=== PATIENT | female | born 1995 | race Caucasian/White ===

== ENCOUNTER 2017-03-05 19:26 | Emergency (ER) | payer OTHER ==
[2017-03-05 19:37] VITALS: TEMP 98.2; BMI 22.4
--- NOTE | 2017-03-05 20:14 | PDOC ---
History of Present Illness - General History Source: Patient Exam Limitations: No Limitations - History of Present Illness Initial Comments: 03/05/17 21:31 Patient is a 21 year old female, 7 weeks , with no significant past medical history who presents to the ED with complaints vomiting that began 2 week ago. Patient reporting experiencing sudden onset of vomiting 2 weeks ago that has not subsided or relieved. She reports feeling dizzy and nauseous secondary to vomiting. She reports experiencing vaginal bleeding on wednesday when cleaning herself, stating that she has not experienced that before. Patient reports experiencing intermittent abdominal pain secondary to vomiting. Denies fever, chills. Denies chest pain, SOB . Denies any outside travel. Denies any contact with sick individuals. Denies dysuria, constipation. Denies any other symptoms. Allergies: None Social history: No smoking. No alcohol. No illicit drugs. Surgical history: None PMD:None <Fili Samayoa - Last Filed: 03/05/17 21:31> <Natalia Trinidad - Last Filed: 03/06/17 01:33> - General Chief Complaint: Nausea/Vomiting Stated Complaint: ABDOMINAL PAIN/6 WKS Time Seen by Provider: 03/05/17 20:13 Past History <Fili Samayoa - Last Filed: 03/05/17 21:31> - Past Medical History Other medical history: denies - Suicide/Smoking/Psychosocial Hx Smoking History: Never smoked <Natalia Trinidad - Last Filed: 03/06/17 01:33> - Past Medical History Allergies/Adverse Reactions: Allergies Allergy/AdvReac Type Severity Reaction Status Date / Time No Known Allergies Allergy Verified 03/05/17 19:37 Home Medications: Ambulatory Orders Doxylamine/Pyridoxine HCl [Anderson Holland 10-10 mg Tablet] 1 each PO HS #10 tablet. 03/06/17 Review of Systems - Review of Systems Able to Perform ROS?: Yes Comments:: 03/05/17 21:31 GENERAL/CONSTITUTIONAL: No fever or chills. No weakness. HEAD, EYES, EARS, NOSE AND THROAT: No change in vision. No ear pain or discharge. No sore throat. GASTROINTESTINAL: +Nausea. +Vomiting. No diarrhea or constipation. GENITOURINARY: No dysuria, frequency, or change in urination. CARDIOVASCULAR: No chest pain or shortness of breath. RESPIRATORY: No cough, wheezing, or hemoptysis. MUSCULOSKELETAL: +abdominal pain. No joint or muscle swelling. No neck or back pain. SKIN: No rash NEUROLOGIC: No headache, vertigo, loss of consciousness, or change in strength/ sensation. ENDOCRINE: No increased thirst. No abnormal weight change. HEMATOLOGIC/LYMPHATIC: No anemia, easy bleeding, or history of blood clots. ALLERGIC/IMMUNOLOGIC: No hives or skin allergy. All Other Systems: Reviewed and Negative <Fili Samayoa - Last Filed: 03/05/17 21:31> *Physical Exam - Vital Signs Last Vital Signs Temp Pulse Resp BP Pulse Ox 98.2 F 75 18 103/59 99 03/05/17 19:33 03/05/17 19:33 03/05/17 19:33 03/05/17 19:33 03/05/17 19:33 - Physical Exam Comments: 03/05/17 21:32 GENERAL: Awake, alert, and fully oriented, in no acute distress HEAD: No signs of trauma EYES: PERRLA, EOMI, sclera anicteric, conjunctiva clear ENT: Auricles normal inspection, hearing grossly normal, nares patent, oropharynx clear without exudates. Moist mucosa NECK: Normal ROM, supple, no lymphadenopathy, JVD, or masses LUNGS: Breath sounds equal, clear to auscultation bilaterally. No wheezes, and no crackles HEART: +Tachycardic. Regular rhythm, normal S1 and S2, no murmurs, rubs or gallops ABDOMEN: +Mild superpubic tenderness. Soft, normoactive bowel sounds. No guarding, no rebound. No masses EXTREMITIES: Normal range of motion, no edema. No clubbing or cyanosis. No cords, erythema, or tenderness NEUROLOGICAL: Cranial nerves II through XII grossly intact. Normal speech. SKIN: Warm, Dry, normal turgor, no rashes or lesions noted. <Fili Samayoa - Last Filed: 03/05/17 21:31> - Vital Signs Last Vital Signs Temp Pulse Resp BP Pulse Ox 98.2 F 75 18 103/59 99 03/05/17 19:33 03/05/17 19:33 03/05/17 19:33 03/05/17 19:33 03/05/17 19:33 <Natalia Trinidad - Last Filed: 03/06/17 01:33> ED Treatment Course - LABORATORY CBC & Chemistry Diagram: 03/05/17 20:30 03/05/17 20:30 - ADDITIONAL ORDERS Additional order review: Laboratory Results 03/05/17 20:30 Sodium 137 Potassium 4.4 Chloride 103 Carbon Dioxide 26 Anion Gap 8 BUN 9 Creatinine 0.6 Creat Clearance w eGFR > 60 Random Glucose 80 Calcium 9.7 Total Bilirubin 0.6 AST 31 ALT 73 Alkaline Phosphatase 77 Total Protein 8.3 H Albumin 4.6 03/05/17 20:30 RBC 4.81 MCV 88.7 MCHC 34.5 RDW 12.6 MPV 8.9 Neutrophils % 81.9 Lymphocytes % 14.0 Monocytes % 3.7 L Eosinophils % 0.0 Basophils % 0.4 - Medications Given in the ED: ED Medications Discontinued Medications Generic Name Dose Route Start Last Admin Trade Name Pabloq PRN Reason Stop Dose Admin Famotidine/Sodium Chloride 50 mls @ 100 mls/hr 03/05/17 20:24 03/05/17 20:56 Pepcid 20 Mg Premixed Ivpb - IVPB 03/05/17 20:53 100 mls/hr ONCE ONE Administration Ondansetron HCl 4 mg 03/05/17 20:24 03/05/17 20:56 Zofran Injection IVPUSH 03/05/17 20:25 4 mg ONCE ONE Administration Pyridoxine HCl 50 mg 03/05/17 20:35 03/05/17 21:02 Vitamin B6 - PO 03/05/17 20:36 50 mg ONCE ONE Administration Sodium Chloride 1,000 ml 03/05/17 20:22 03/05/17 20:56 Normal Saline - IV 03/05/17 20:23 1,000 ml ONCE ONE Administration <Fili Samayoa - Last Filed: 03/05/17 21:31> - LABORATORY CBC & Chemistry Diagram: 03/05/17 20:30 03/05/17 20:30 <Natalia Trinidad - Last Filed: 03/06/17 01:33> Medical Decision Making - Medical Decision Making 03/05/17 23:01 a/p: 21yo female with n/v during 1st trimester of -now with pelvic cramping, had spotting on wednesday -labs -ultrasound -nausea control -ivf hydration -reassess 03/06/17 01:10 pt pending ultrasound results 03/06/17 01:17 pt feeling better. tolerated po intake. no n/v in the deparmtnet. discussed lab and imaging results. has appt with ob.rubbish collector at [facility] on wednesday. recommended pt to go to appt. discussed all reasons to return to the ED and need for follow up. answered all questions. <Natalia Trinidad - Last Filed: 03/06/17 01:33> *DC/Admit/Observation/Transfer - Attestations Scribe Attestion: 03/05/17 21:32 Documentation prepared by Fili Samayoa, acting as medical director for Natalia Trinidad DO, MD/. <Fili Samayoa - Last Filed: 03/05/17 21:31> - Discharge Dispostion Admit: No - Attestations Physician Attestion: 03/06/17 01:32 I, Dr. Natalia Trinidad DO, attest that this document has been prepared under my direction and personally reviewed by me in its entirety. I further attest, that it accurately reflects all work, treatment, procedures and medical decision -making performed by me. <Natalia Trinidad - Last Filed: 03/06/17 01:33> Diagnosis at time of Disposition: Nausea and vomiting during - Discharge Dispostion Disposition: HOME Condition at time of disposition: Stable - Prescriptions Prescriptions: Doxylamine/Pyridoxine HCl [Anderson Holland 10-10 mg Tablet] 1 each PO HS #10 tablet.dr - Referrals Referrals: Genevieve Zuluaga MD [Staff Physician] - - Patient Instructions Printed Discharge Instructions: DI for Vomiting -- Adult, DI for Nausea -- Adult Additional Instructions: Please take all meds as instructed. Please keep your appointment for Wednesday. Please return to the ED with any further concerns.
[2017-03-05] MEDS ORDERED: SODIUM CHLORIDE 0.9% 1000 ML INFUS.BAG IV ONE (20:22)
[2017-03-05] MEDS ORDERED: ONDANSETRON 4 MG/2 ML VIAL IVPUSH ONE (20:24)
[2017-03-05] MEDS ORDERED: FAMOTIDINE 20 MG/50 ML IVPB 50 ML IVPB ONE ×2 (20:24→21:08)
[2017-03-05] MEDS ORDERED: PYRIDOXINE HCL (B-6) 50 MG TABLET (FP) PO ONE (20:35)
[2017-03-05 20:54] LABS: BASOPHIL 0.4 % (0-2.0); MCH 30.6 pg (25.7-33.7); MCHC 34.5 g/dl (32.0-36.0); MEAN CELL VOLUME 88.7 fl (80-96); MEAN PLT VOLUME 8.9 fl (7.5-11.1); NEUTROPHILS 81.9 % (42.8-82.8); PLATELET COUNT 234 K/MM3 (134-434); RDW 12.6 % (11.6-15.6); WHITE BLOOD COUNT 14.2 K/mm3 (4.0-10.0)
[2017-03-05] MEDS ORDERED: ONDANSETRON 4 MG/2 ML VIAL ONE (21:08)
[2017-03-05 21:27] LABS: ALBUMIN 4.6 g/dl (3.4-5.0); ANION GAP 8 (8-16); BILIRUBIN,TOTAL 0.6 mg/dL (0.2-1.0); CALCIUM 9.7 mg/dL (8.5-10.1); CO2 26 mmol/L (21-32); CREATININE 0.6 mg/dL (0.55-1.02); GLUCOSE,RANDOM 80 mg/dL (74-106); SGOT/AST 31 U/L (15-37); SGPT/ALT 73 U/L (12-78); TOT PROT 8.3 g/dl (6.4-8.2)
[2017-03-05 21:28] LABS: ALK PHOS 77 U/L (45-117)
[2017-03-05 21:58] LABS: URINE APPEARANCE CLEAR; URINE BILIRUBIN 1+ (NEGATIVE); URINE BLOOD NEGATIVE (NEGATIVE); URINE COLOR LT. YELLOW; URINE GLUCOSE (UA) NEGATIVE (NEGATIVE); URINE KETONE 3+ (NEGATIVE); URINE LEUK ESTERASE NEGATIVE (NEGATIVE); URINE NITRITE NEGATIVE (NEGATIVE); URINE UROBILINOGEN 0.2 mg/dL (0.2-1.0)
[2017-03-05 22:04] LABS: URINE PROTEIN 1+ (NEGATIVE)
[2017-03-05 22:27] LABS: URINE MUCUS MODERATE; URINE RBC 1 /hpf (0-3); URINE WBC 1 /hpf (3-5)
[2017-03-05 22:47] VITALS: BP 114/68; PULSE 71
== END 2017-03-06 02:19 | disposition home or self-care (01) ==
LOC: JER 19:26
PROC: 3E033GC Introduction of Other Therapeutic Substance into Peripheral Vein, Percutaneous Approach (ICD-10-PCS; principal; 2017-03-05)
DX: O21.0 Mild hyperemesis gravidarum (principal); Z3A.01 Less than 8 weeks gestation of pregnancy
CPT/HCPCS: 36415; 76817-TC; 80053; 81003; 81015; 84702; 84703; 85025; 86850; 86900; 86901; 96365; 96375; 99281-25

== ENCOUNTER 2017-10-24 08:55 | Inpatient (IN) | payer OTHER ==
[2017-10-24] MEDS ORDERED: DEXTROSE 5%-LACTATED RINGERS 500 ML IV ONE ×2 (10:15→11:15)
--- NOTE | 2017-10-24 12:56 | HP ---
Past Medical History - Admission Chief Complaint: Postdates History of Present Illness: 22 yo , @ 40 weeks gestation, EDC 10/21/17, sent from clinic for BPP. Decision made for induction of labor. History Source: Patient Limitations to Obtaining History: No Limitations - Past Medical History ...: 1 ...Para: 0 ...LMP: 01/14/17 ... Weeks Gestation by Dates: 40.3 ...EDC by Dates: 10/21/17 ...EDC by Sono: 10/21/17 - Past Surgical History Past Surgical History: Yes: None Hx Myomectomy: No Hx Transabdominal Cerclage: No - Smoking History Smoking history: Never smoked Have you smoked in the past 12 months: No - Alcohol/Substance Use Hx Alcohol Use: No History of Substance Use: reports: None - Social History Usual Living Arrangement: Yes: With Parent History of Recent Travel: No Home Medications - Allergies Allergies/Adverse Reactions: Allergies Allergy/AdvReac Type Severity Reaction Status Date / Time No Known Allergies Allergy Verified 04/24/17 20:08 - Home Medications Home Medications: Ambulatory Orders Iron 100 Plus Tablet 1 tab PO DAILY 08/19/17 Formula Tablet 1 tab PO DAILY 08/19/17 Family Disease History - Family Disease History Family History: Unremarkable Review of Systems - Review of Systems Constitutional: reports: No Symptoms Eyes: reports: No Symptoms HENT: reports: No Symptoms Neck: reports: No Symptoms Cardiovascular: reports: No Symptoms Respiratory: reports: No Symptoms Gastrointestinal: reports: No Symptoms Genitourinary: reports: Pain Breasts: reports: No Symptoms Reported Musculoskeletal: reports: No Symptoms Integumentary: reports: No Symptoms Neurological: reports: No Symptoms Endocrine: reports: No Symptoms Hematology/Lymphatic: reports: No Symptoms Psychiatric: reports: No Symptoms Pain Intensity: 3 Physical Exam - Maternity Vital Signs: Vital Signs Temperature 98.4 F 10/24/17 09:39 Pulse Rate 120 H 10/24/17 09:39 Respiratory Rate 20 10/24/17 09:39 Blood Pressure 122/76 10/24/17 09:39 O2 Sat by Pulse Oximetry (%) Constitutional: Yes: Well Nourished Eyes: Yes: Conjunctiva Clear HENT: Yes: Atraumatic Neck: Yes: Supple Cardiovascular: Yes: Regular Rate and Rhythm Lungs: Clear to auscultation - Abdominal Exam/OB Number of Fetuses: Single Presentation: Vertex - Vaginal Exam/OB Dilatation (cm): 1 Effacement (%): 60 Amniotic Membrane Status: Intact Presentation: Vertex/Position Station: -3 - Physical Exam Integumentary: Yes: WNL ...Motor Strength: WNL Psychiatric: Yes: Alert, Oriented Problem List - Problems (1) Post-dates Code(s): O48.0 - POST-TERM Assessment/Plan Postdates Admit to L&D Induction of labor
[2017-10-24] MEDS ORDERED: AMPICILLIN SODIUM 2 GM VIAL ONE (12:58)
[2017-10-24] MEDS ORDERED: TUBERCULIN PPD 5 TU/0.1ML SYRINGE (IN PATIENT USE ONLY) ID ONE (13:30)
[2017-10-24] MEDS: DEXTROSE 5%-LACTATED RINGERS 1,000 ML IV SCH (13:30)
[2017-10-24] MEDS ORDERED: AMPICILLIN - 2 GM in SODIUM CHLORIDE 100 ML IVPB ONE (13:30)
[2017-10-24 13:51] VITALS: BMI 30.9
[2017-10-24 13:58] LABS: BASO % 0.7 % (0-2.0); EOS % 0.9 % (0-4.5); HEMATOCRIT 34.9 % (32.4-45.2); HEMOGLOBIN 12.6 GM/dL (10.7-15.3); LYMPH % 19.2 % (8-40); MCH 33.8 pg (25.7-33.7); MCHC 36.2 g/dl (32.0-36.0); MEAN CELL VOLUME 93.4 fl (80-96); MEAN PLT VOLUME 8.7 fl (7.5-11.1); MONO % 5.6 % (3.8-10.2); NEUT % 73.6 % (42.8-82.8); PLATELET COUNT 217 K/MM3 (134-434); RBC 3.74 M/mm3 (3.60-5.2); RDW 14.3 % (11.6-15.6); WHITE BLOOD COUNT 8.8 K/mm3 (4.0-10.0)
[2017-10-24] MEDS ORDERED: DINOPROSTONE 10 MG VAGINAL SUPPOSITORY VG ONE (14:00)
[2017-10-24 14:05] LABS: INR 0.93 (0.82-1.09); PROTHROMBIN TIME (PATIENT) 10.5 SEC (9.7-13.0)
[2017-10-24 14:11] LABS: ANION GAP 10 (8-16); BLOOD UREA NITROGEN 8 mg/dL (7-18); CALCIUM 8.2 mg/dL (8.5-10.1); CHLORIDE 108 mmol/L (98-107); CO2 21 mmol/L (21-32); CREATININE 0.5 mg/dL (0.55-1.02); GLUCOSE,RANDOM 124 mg/dL (74-106); POTASSIUM 3.6 mmol/L (3.5-5.1); SODIUM 139 mmol/L (136-145)
[2017-10-24] MEDS ORDERED: AMPICILLIN SODIUM 1 GM VIAL ONE ×2 (16:47→21:31)
[2017-10-24] MEDS: AMPICILLIN - 1 GM in SODIUM CHLORIDE 100 ML IVPB SCH ×2 (17:00→21:00)
--- NOTE | 2017-10-24 20:35 | PN ---
Progress Note (short form) - Note Progress Note: Patient seen and evaluated, she c/o mild discomfort. Cervidil removed, and membrane ruptured. scalp electrode placed. VE : 3-4 / 80 / -2 S/P cervidil induction Pitocin augmentation Anticipate Problem List - Problems (1) Post-dates Code(s): O48.0 - POST-TERM
[2017-10-24] MEDS ORDERED: CITRIC ACID/SODIUM CITRATE 30 ML UNIT-DOSE CUP PO ONE (21:54)
--- NOTE | 2017-10-24 21:54 | PN ---
Progress Note (short form) - Note Progress Note: Patient seen and evaluated, she c/o moderate discomfort. Cervidil removed, and membrane ruptured. FHR : Non-Reassuring VE : 4 80 / -2 S/P cervidil induction Non-Reassuring FHR Pre op for Consent signed Anesthesia to see patient Problem List - Problems (1) Post-dates Code(s): O48.0 - POST-TERM
[2017-10-24] MEDS ORDERED: ONDANSETRON 4 MG/2 ML VIAL IVPUSH PRN (22:01)
[2017-10-24] MEDS ORDERED: morphine SULFATE/Preservative Free 0.5 MG/ML (1cc Syringe) ONE (22:11)
[2017-10-24] MEDS ORDERED: BUPIVACAINE 0.75% IN DEXTROSE/PF 2ML AMPULE NR ONE (22:13)
[2017-10-24] MEDS ORDERED: KETOROLAC TROMETHAMINE 30 MG/1 ML VIAL ONE (22:18)
[2017-10-24] MEDS ORDERED: DEXAMETHASONE SOD PHOSPHATE 4 MG/1 ML VIAL ONE (22:18)
[2017-10-24] MEDS ORDERED: OXYTOCIN 20 UNITS in 0.9% NS 20 UNIT/1,000 ML INFUS.BAG IV ONE (22:32)
[2017-10-24] MEDS ORDERED: ceFAZolin SODIUM 1 GM VIAL ONE (22:36)
[2017-10-24] MEDS ORDERED: SODIUM CHLORIDE 0.9% P/F 10 ML VIAL IJ ONE (22:36)
[2017-10-24] MEDS: OXYTOCIN 20 UNITS in 0.9% NS 20 UNIT/1,000 ML INFUS.BAG IV SCH (22:48)
--- NOTE | 2017-10-24 22:58 | PN ---
Progress Note (short form) - Note Progress Note: Called to attened C/s for this this FT " large" female - delivered to 24yrs old mother with PNL- neg, GBS- Pos, ROM > 3hrs adequate IAP C/s done for NRFHT delivered - clear fluid, cried soon after suctioned/ dried cord 3V 9/9 Infant clinically stable- large in size Normocephalic, AFOF [place] well perfused Chest B/L symm, No heart murmur, No organomegaly , - nl female FROM, NL hip exam. Good tone and activity Term LGA Female C/S for NRFHT GBS- pos mom - adequate IAP RNBC F/U BGM early Feeds
[2017-10-24] MEDS ORDERED: IBUPROFEN 800 MG/8 ML IJ IVPB PRN (23:18)
[2017-10-24] MEDS ORDERED: METHYLERGONOVINE MALEATE 0.2 MG/1 ML AMP IM PRN (23:18)
--- NOTE | 2017-10-24 23:22 | OP ---
Operative Note - Note: Operative Date: 10/24/17 Pre-Operative Diagnosis: Non-Reassuring Heart Rate Operation: Primary Low Transverse Findings: Large baby for gestational age Post-Operative Diagnosis: Same as Pre-op Surgeon: Araceli Reyes Electronics Manufacturer: Bartolo Patel Anesthesia: Spinal Specimens Removed: Placenta Estimated Blood Loss (mls): 600
[2017-10-25 00:21] LABS: ARTERIAL BLOOD GAS PCO2 48.4 mmHg (35-45); ARTERIAL BLOOD GAS pH 7.32 (7.35-7.45)
[2017-10-25 00:23] LABS: VENOUS PC02 53.4 mmHg (38-52); VENOUS PH 7.29 (7.32-7.42)
[2017-10-25 00:25] LABS: VENOUS PO2 17.9 mmHg (28-48)
[2017-10-25 00:26] LABS: ARTERIAL BLD GAS O2 SATURATION 36.2 % (90-98.9); ARTERIAL BLOOD GAS PO2 20.1 mmHg (80-100)
[2017-10-25] MEDS ORDERED: OXYTOCIN 20 UNITS in 0.9% NS 20 UNIT/1,000 ML INFUS.BAG IV ONE (00:59)
[2017-10-25] MEDS: OXYTOCIN 20 UNITS in 0.9% NS 20 UNIT/1,000 ML INFUS.BAG IV SCH ×2 (07:00→23:50)
[2017-10-25 07:47] LABS: BASO % 0.4 % (0-2.0); HEMATOCRIT 31.8 % (32.4-45.2); HEMOGLOBIN 11.5 GM/dL (10.7-15.3); MCH 34.1 pg (25.7-33.7); MEAN CELL VOLUME 94.5 fl (80-96); MEAN PLT VOLUME 8.7 fl (7.5-11.1); MONO % 6.8 % (3.8-10.2); NEUT % 79.8 % (42.8-82.8); PLATELET COUNT 213 K/MM3 (134-434); RBC 3.36 M/mm3 (3.60-5.2); RDW 13.8 % (11.6-15.6); WHITE BLOOD COUNT 16.8 K/mm3 (4.0-10.0)
[2017-10-25] MEDS: FERROUS SO4 325 MG TABLET (FP) PO SCH ×2 (08:59→18:03)
[2017-10-25] MEDS: PRENATAL VITAMINS W/ FOLIC ACID TABLET (FP) PO SCH (10:00)
--- NOTE | 2017-10-25 14:20 | PN ---
Progress Note (short form) - Note Progress Note: Anesthesia POD@1 S/P under Spinal anesthesia VSS,No N/Vomitng,food is advanced. Legs have full strength. A/P No complications to anesthesia seen. Sol Helton MD.
[2017-10-25] MEDS: DEXTROSE 5%-LACTATED RINGERS 1,000 ML IV SCH (15:00)
[2017-10-25] MEDS: oxyCODONE HCL 5 MG TABLET PO PRN (22:04)
[2017-10-25] MEDS: SIMETHICONE 80 MG TAB.CHEW (FP) PO PRN (22:04)
[2017-10-25] MEDS: IBUPROFEN 600 MG TABLET (FP) PO PRN (22:06)
[2017-10-25] MEDS ORDERED: BISACODYL 10 MG SUPP.RECT RC PRN (23:18)
[2017-10-26] MEDS: FERROUS SO4 325 MG TABLET (FP) PO SCH ×2 (08:43→16:53)
[2017-10-26] MEDS: PRENATAL VITAMINS W/ FOLIC ACID TABLET (FP) PO SCH (10:08)
[2017-10-26] MEDS: oxyCODONE HCL 5 MG TABLET PO PRN ×2 (10:13→18:52)
[2017-10-26] MEDS: SIMETHICONE 80 MG TAB.CHEW (FP) PO PRN ×2 (10:14→18:53)
[2017-10-26] MEDS: IBUPROFEN 600 MG TABLET (FP) PO PRN ×2 (10:14→18:52)
--- NOTE | 2017-10-26 11:08 | PN ---
Progress Note (SOAP) - Subjective Chief Complaint: Pt and had no complaints pt was seen on 10/25 - Current Medications Current Medications: Active Medications Bisacodyl (Dulcolax Suppository -) 10 mg RC DAILY PRN PRN Reason: CONSTIPATION Diphenhydramine HCl (Benadryl Injection -) 25 mg IVPUSH Q4H PRN PRN Reason: Pruritis Ferrous Sulfate (Feosol -) 325 mg PO BIDWM [facility] Last Admin: 10/26/17 08:43 Dose: 325 mg Ibuprofen (Motrin -) 600 mg PO Q4H PRN PRN Reason: PAIN LEVEL 1 - 3 Last Admin: 10/26/17 10:14 Dose: 600 mg Ibuprofen (Caldolor Injection -) 800 mg IVPB Q8H PRN PRN Reason: PAIN LEVEL 4 - 6 Methylergonovine Maleate (Methergine Injection -) 0.2 mg IM Q4H PRN PRN Reason: Excessive Bleeding (L&D) Ondansetron HCl (Zofran Injection) 4 mg IVPUSH Q4H PRN PRN Reason: NAUSEA Oxycodone HCl (Roxicodone -) 5 mg PO Q4H PRN PRN Reason: PAIN LEVEL 7 - 10 Last Admin: 10/26/17 10:13 Dose: 5 mg Multivit/Folic Acid/Iron ( Vitamins (Sjr) -) 1 tab PO DAILY [facility] Last Admin: 10/26/17 10:08 Dose: 1 tab Simethicone (Mylicon -) 80 mg PO Q4H PRN PRN Reason: GAS Last Admin: 10/26/17 10:14 Dose: 80 mg - Objective Vital Signs: Vital Signs Temperature 98.4 F 10/25/17 21:01 Pulse Rate 109 H 10/25/17 21:01 Respiratory Rate 20 10/25/17 21:01 Blood Pressure 101/55 10/25/17 21:01 O2 Sat by Pulse Oximetry (%) 98 10/25/17 02:00 Constitutional: Yes: Well Nourished, No Distress Gastrointestinal: Yes: WNL, Soft ....Post : Yes: Uterus firm, Uterus non-tender Breast(s): Yes: WNL Musculoskeletal: Yes: WNL Extremities: Yes: WNL Edema: No Wound/Incision: Yes: Dressing Dry and Intact Psychiatric: Yes: WNL, Alert, Oriented Labs Lab Results: CBC, BMP 10/25/17 07:30 10/24/17 13:37 Assessment/Plan SP CS POD 1 Plan Continue present management
--- NOTE | 2017-10-26 14:09 | PN ---
Post Progress Note - Subjective Subjective: 22 yo Para 1 status post primary , seen and evaluated. She's lying in bed c/o mild incision pain. Post Day: 2 Type of Delivery: Primary C/S Vital Signs: Vital Signs Temperature 98.7 F 10/26/17 07:10 Pulse Rate 82 10/26/17 07:10 Respiratory Rate 18 10/26/17 07:10 Blood Pressure 115/69 10/26/17 07:10 O2 Sat by Pulse Oximetry (%) 98 10/25/17 02:00 Uterus: Yes: Fundus Firm Incision: Yes: [place] intact Abdomen/GI: Yes: Abdomen soft, Tolerating PO Lochia: Yes: Rubra Lochia, amount: Small Extremities: Yes: Calves non-tender Perineum: Yes: Intact Activity: Ambulating - Labs Labs: CBC WBC 16.8 K/mm3 (4.0-10.0) H D 10/25/17 07:30 RBC 3.36 M/mm3 (3.60-5.2) L 10/25/17 07:30 Hgb 11.5 GM/dL (10.7-15.3) 10/25/17 07:30 Hct 31.8 % (32.4-45.2) L 10/25/17 07:30 MCV 94.5 fl (80-96) 10/25/17 07:30 MCH 34.1 pg (25.7-33.7) H 10/25/17 07:30 MCHC 36.0 g/dl (32.0-36.0) 10/25/17 07:30 RDW 13.8 % (11.6-15.6) 10/25/17 07:30 Plt Count 213 K/MM3 (134-434) 10/25/17 07:30 MPV 8.7 fl (7.5-11.1) 10/25/17 07:30 Neutrophils % 79.8 % (42.8-82.8) 10/25/17 07:30 Lymphocytes % 13.0 % (8-40) D 10/25/17 07:30 Monocytes % 6.8 % (3.8-10.2) 10/25/17 07:30 Eosinophils % 0.0 % (0-4.5) D 10/25/17 07:30 Basophils % 0.4 % (0-2.0) 10/25/17 07:30 Problem List - Problems (1) Post-dates Code(s): O48.0 - POST-TERM (2) Status post primary low transverse section Code(s): Z98.891 - HISTORY OF UTERINE SCAR FROM PREVIOUS SURGERY Assessment/Plan Status post primary Stable Continue post op care
[2017-10-27 07:39] LABS: BASO % 0.8 % (0-2.0); EOS % 2.2 % (0-4.5); HEMATOCRIT 34.4 % (32.4-45.2); HEMOGLOBIN 12.1 GM/dL (10.7-15.3); MCH 33.5 pg (25.7-33.7); MCHC 35.1 g/dl (32.0-36.0); MEAN CELL VOLUME 95.3 fl (80-96); MEAN PLT VOLUME 8.5 fl (7.5-11.1); MONO % 8.2 % (3.8-10.2); NEUT % 56.8 % (42.8-82.8); PLATELET COUNT 257 K/MM3 (134-434); WHITE BLOOD COUNT 9.1 K/mm3 (4.0-10.0)
[2017-10-27 07:53] VITALS: BP 108/72; PULSE 89; TEMP 98.9
[2017-10-27] MEDS: SIMETHICONE 80 MG TAB.CHEW (FP) PO PRN (08:46)
[2017-10-27] MEDS: FERROUS SO4 325 MG TABLET (FP) PO SCH (08:46)
[2017-10-27] MEDS: IBUPROFEN 600 MG TABLET (FP) PO PRN (08:46)
[2017-10-27] MEDS: oxyCODONE HCL 5 MG TABLET PO PRN (08:46)
[2017-10-27] MEDS: PRENATAL VITAMINS W/ FOLIC ACID TABLET (FP) PO SCH ×2 (08:48→09:37)
--- NOTE | 2017-10-27 09:05 | PN ---
Post Progress Note - Subjective Subjective: c/o pain scale 5-6/10 voiding without difficulty oob Post Day: 3 Type of Delivery: Primary C/S Vital Signs: Vital Signs Temperature 98.9 F 10/27/17 07:52 Pulse Rate 89 10/27/17 07:52 Respiratory Rate 20 10/27/17 07:52 Blood Pressure 108/72 10/27/17 07:52 O2 Sat by Pulse Oximetry (%) 98 10/25/17 02:00 Breast Exam: Yes: Soft, Other (BF ). No: Engorged Uterus: Yes: Fundus Firm, Fundus below umbilicus Incision: Yes: [place] intact. No: Redness, Oozing Abdomen/GI: Yes: Abdomen soft, Passing flatus, Tolerating PO (diet ). No: Abdominal Distention, Tender Lochia: Yes: Rubra Lochia, amount: Moderate Extremities: Yes: Calves non-tender Perineum: Yes: Intact Activity: Ambulating - Labs Labs: CBC WBC 9.1 K/mm3 (4.0-10.0) D 10/27/17 07:17 RBC 3.60 M/mm3 (3.60-5.2) 10/27/17 07:17 Hgb 12.1 GM/dL (10.7-15.3) 10/27/17 07:17 Hct 34.4 % (32.4-45.2) 10/27/17 07:17 MCV 95.3 fl (80-96) 10/27/17 07:17 MCH 33.5 pg (25.7-33.7) 10/27/17 07:17 MCHC 35.1 g/dl (32.0-36.0) 10/27/17 07:17 RDW 14.0 % (11.6-15.6) 10/27/17 07:17 Plt Count 257 K/MM3 (134-434) D 10/27/17 07:17 MPV 8.5 fl (7.5-11.1) 10/27/17 07:17 Neutrophils % 56.8 % (42.8-82.8) D 10/27/17 07:17 Lymphocytes % 32.0 % (8-40) D 10/27/17 07:17 Monocytes % 8.2 % (3.8-10.2) 10/27/17 07:17 Eosinophils % 2.2 % (0-4.5) D 10/27/17 07:17 Basophils % 0.8 % (0-2.0) 10/27/17 07:17 Problem List - Problems (1) care following delivery Code(s): Z39.2 - ENCOUNTER FOR ROUTINE FOLLOW-UP Assessment/Plan stable plan discharge today
--- NOTE | 2017-11-02 18:27 | PATH ---
Surgical Pathology Report Patient Name: MOISES REICH Med. Rec. #: [id number] /Age/Gender: 1995 (Age: 22) / F Account: [id number] Location: [facility] OBS/WELDING MACHINE OPERATOR GAS Taken: 10/24/2017 Received: 10/25/2017 Reported: 11/02/2017 Physicians: Araceli Reyes M.D. Specimen(s) Received PLACENTA Clinical History , 40.3 weeks, nonreassuring tracing Final Diagnosis PLACENTA: THIRD TRIMESTER PLACENTA WITH ONE FOCUS OF INTRAPARENCHYMAL HEMORRHAGE (1.1 CM IN GREATEST DIMENSION). TRIVASCULAR CORD. MEMBRANES, NO DIAGNOSTIC ABNORMALITIES. Electronically Signed Desiree Pennington M.D. Gross Description The specimen is received fresh labeled placenta and is a 570 gram, 22.0 x 16.0 x 2.6 cm. placenta with attached membranes and umbilical cord. The attached membranes are muñoz, translucent with focal opacities and insert marginally. The umbilical cord measures 28 cm. in length and averages 1.2 cm. in diameter. The cord inserts eccentrically, 5 cm. to the nearest margin. No true knots or strictures are identified. Cut surface of the umbilical cord reveals 3 vessels. The surface is rutherford-blue with minimal fibrin deposition and appropriate caliber vessels. The maternal surface is red-brown with focal defects. Sectioning reveals a 1.1 cm greatest dimension intraparenchymal hemorrhagic lesion. The remaining placental parenchyma is red-brown and spongy. Home Demonstrator sections are submitted in 4 cassettes as follows: 1-membrane roll and umbilical cord; 2-lesion; 3-4-full thickness sections of placenta. 10/29/2017 [facility]10/29/2017
== END 2017-10-27 12:30 | disposition home or self-care (01) | DRG 540 ==
LOC: JDEL 08:55 → JLDR 12:30 → J3W 10-25 01:59
PROVIDERS: ADMIT Obstetrics & Gynecology; ATTEND Obstetrics & Gynecology
PROC: 10D00Z1 Extraction of Products of Conception, Low, Open Approach (ICD-10-PCS; principal; 2017-10-24)
DX: O48.0 Post-term pregnancy (principal); O76 Abnormality in fetal heart rate and rhythm complicating labor and delivery; O36.63X0 Maternal care for excessive fetal growth, third trimester, not applicable or unspecified; O99.824 Streptococcus B carrier state complicating childbirth; O26.893 Other specified pregnancy related conditions, third trimester; R03.0 Elevated blood-pressure reading, without diagnosis of hypertension; Z3A.40 40 weeks gestation of pregnancy; Z37.0 Single live birth
CPT/HCPCS: 36415; 36600; 76819-TC; 80048; 82803; 85025; 85610; 86593; 86850; 86900; 86901; 88307-TC

== ENCOUNTER 2023-07-15 17:00 | Inpatient (IN) | payer OTHER ==
[2023-07-15] MEDS: ELECTROLYTE-148 SOLN 1,000 ML IV SCH ×2 (17:15→17:45)
[2023-07-15 18:01] VITALS: BMI 33.6
[2023-07-15 18:11] LABS: BASO % 0.3 % (0-2.0); EOS % 0.4 % (0-4.5); HEMATOCRIT 38.3 % (32.4-45.2); HEMOGLOBIN 13.4 GM/dL (10.7-15.3); LYMPH % 14.8 % (8-40); MEAN CELL VOLUME 91.5 fl (80-96); MEAN PLT VOLUME 8.5 fl (7.5-11.1); MONO % 5.9 % (3.8-10.2); NEUT % 78.6 % (42.8-82.8); PLATELET COUNT 214 10^3/uL (134-434); RBC 4.19 M/mm3 (3.60-5.2); RDW 14.6 % (11.6-15.6); WHITE BLOOD COUNT 9.2 K/mm3 (4.0-10.0)
[2023-07-15 18:19] LABS: INR 0.91 (0.83-1.09); PROTHROMBIN TIME (PATIENT) 10.6 SEC (9.7-13.0)
[2023-07-15 18:22] LABS: ACTIVATED PTT 26.1 SECONDS (25.2-36.5)
[2023-07-15] MEDS ORDERED: ELECTROLYTE-148 SOLN 1,000 ML IV SCH (18:30)
[2023-07-15 18:38] LABS: POTASSIUM 3.9 mmol/L (3.5-5.1)
[2023-07-15 18:40] LABS: BLOOD UREA NITROGEN 8.2 mg/dL (7-18); CALCIUM 8.9 mg/dL (8.5-10.1)
[2023-07-15 18:44] LABS: CREATININE 0.4 mg/dL (0.55-1.3)
[2023-07-15] MEDS: CITRIC ACID/SODIUM CITRATE 30 ML UNIT-DOSE CUP PO ONE (19:30)
[2023-07-15] MEDS ORDERED: ONDANSETRON 4 MG/2 ML VIAL ONE (19:48)
[2023-07-15] MEDS ORDERED: ceFAZolin SODIUM 1 GM VIAL ONE (19:48)
[2023-07-15] MEDS ORDERED: METOCLOPRAMIDE HCL INJECTION 10 MG/2 ML VIAL ONE (19:48)
[2023-07-15] MEDS ORDERED: FENTANYL CITRATE/PF 50 MCG/ML VIAL ONE (19:48)
[2023-07-15] MEDS ORDERED: morphine SULFATE/PF 1 MG/2 ML (2cc Syringe - QUVA) ONE (19:48)
[2023-07-15] MEDS ORDERED: PHENYLEPHRINE HCL 10 MG/1 ML SINGLE DOSE VIAL ONE (19:48)
[2023-07-15] MEDS ORDERED: DEXAMETHASONE SOD PHOSPHATE 4 MG/1 ML VIAL ONE (19:48)
[2023-07-15] MEDS ORDERED: OXYTOCIN 30 UNITS in 0.9% NS 30 UNIT/500 ML INFUS.BAG IVPB ONE (19:54)
[2023-07-15] MEDS ORDERED: KETOROLAC TROMETHAMINE 30 MG/1 ML VIAL ONE (21:10)
[2023-07-15 21:22] LABS: CORD BASE EXCESS -4.2 mmol/L (0-2); CORD HCO3 21.8 mmHg (20-29); CORD PCO2 43.1 mmHg (30-78); CORD pH 7.321 (7.14-7.44)
[2023-07-15 21:24] LABS: CORD HCO3 22.5 mmHg (20-29); CORD PCO2 52.6 mmHg (30-78)
[2023-07-15] MEDS ORDERED: ONDANSETRON 4 MG/2 ML VIAL IVPUSH PRN (21:27)
[2023-07-15] MEDS ORDERED: IBUPROFEN 600 MG TABLET (FP) PO PRN (21:35)
[2023-07-15] MEDS ORDERED: IBUPROFEN 800 MG/8 ML IJ IVPB PRN (21:36)
[2023-07-15] MEDS: METHYLERGONOVINE MALEATE 0.2 MG/1 ML AMP IM PRN (22:26)
[2023-07-15] MEDS ORDERED: OXYTOCIN 20 UNITS in 0.9% NS 20 UNIT/1,000 ML INFUS.BAG IV ONE (22:27)
[2023-07-15] MEDS: OXYTOCIN 20 UNITS in 0.9% NS 20 UNIT/1,000 ML INFUS.BAG IV SCH (22:30)
[2023-07-15] MEDS ORDERED: MISOPROSTOL 200 MCG TABLET ONE (23:57)
[2023-07-16] MEDS ORDERED: OXYTOCIN 10 UNITS/ML VIAL ONE (00:05)
[2023-07-16 00:45] LABS: BASO % 0.3 % (0-2.0); EOS % 0.2 % (0-4.5); HEMATOCRIT 37.4 % (32.4-45.2); LYMPH % 7.2 % (8-40); MCH 31.8 pg (25.7-33.7); MCHC 34.7 g/dl (32.0-36.0); MEAN CELL VOLUME 91.7 fl (80-96); MEAN PLT VOLUME 8.5 fl (7.5-11.1); MONO % 3.9 % (3.8-10.2); NEUT % 88.4 % (42.8-82.8); PLATELET COUNT 197 10^3/uL (134-434); RBC 4.07 M/mm3 (3.60-5.2); RDW 14.7 % (11.6-15.6); WHITE BLOOD COUNT 14.7 K/mm3 (4.0-10.0)
[2023-07-16] MEDS: SIMETHICONE 80 MG TAB.CHEW (FP) PO PRN (04:11)
[2023-07-16] MEDS: CEFAZOLIN SODIUM 2 GM in DEXTROSE 5%-WATER 100 ML IVPB SCH (04:11)
[2023-07-16] MEDS: CARBOPROST TROMETHAMINE 250 MCG/ML AMPUL IM ONE (06:36)
[2023-07-16] MEDS: ACETAMINOPHEN 1000 MG/100 ML BAG IVPB PRN (06:36)
[2023-07-16 07:10] LABS: BASO % 0.3 % (0-2.0); HEMATOCRIT 31.5 % (32.4-45.2); LYMPH % 13.8 % (8-40); MCH 32.3 pg (25.7-33.7); MEAN CELL VOLUME 92.1 fl (80-96); MEAN PLT VOLUME 8.6 fl (7.5-11.1); NEUT % 77.9 % (42.8-82.8); PLATELET COUNT 182 10^3/uL (134-434); RBC 3.42 M/mm3 (3.60-5.2); RDW 14.7 % (11.6-15.6); WHITE BLOOD COUNT 12.4 K/mm3 (4.0-10.0)
[2023-07-16] MEDS ORDERED: oxyCODONE HCL 5 MG TABLET PO PRN (09:35)
[2023-07-16] MEDS ORDERED: ENOXAPARIN NA (PORCINE) 40 MG/0.4 ML DISP.SYRIN SQ SCH (10:00)
[2023-07-16] MEDS: MISOPROSTOL 25 MCG TABLET (COMPOUNDED BY PHARMACY) PR ONE (20:01)
[2023-07-16] MEDS: METHYLERGONOVINE MALEATE 0.2 MG/1 ML AMP IM ONE (20:01)
[2023-07-16] MEDS: MISOPROSTOL 200 MCG TABLET PR ONE (20:01)
[2023-07-16] MEDS: morphine SULFATE/PF 1 MG/2 ML (2cc Syringe - QUVA) IT ONE (20:02)
[2023-07-16] MEDS ORDERED: BISACODYL 10 MG SUPP.RECT RC PRN (21:35)
[2023-07-16] MEDS: ACETAMINOPHEN 325 MG TABLET (FP) PO PRN (21:43)
[2023-07-17] MEDS: FLU VACCINE (FLULAVAL) PF 60 MCG/0.5 ML SYRINGE 2023-2024 IM ONE (11:03)
[2023-07-17] MEDS: DIPHTH,PERTUSS(ACELL),TET 0.5 ML DISP.SYRIN IM ONE (11:04)
[2023-07-17] MEDS: oxyCODONE HCL 5 MG TABLET PO PRN (22:46)
[2023-07-18 07:48] LABS: BASO % 0.6 % (0-2.0); EOS % 2.3 % (0-4.5); HEMATOCRIT 27.3 % (32.4-45.2); HEMOGLOBIN 9.8 GM/dL (10.7-15.3); LYMPH % 21.9 % (8-40); MCH 32.9 pg (25.7-33.7); MCHC 35.8 g/dl (32.0-36.0); MEAN PLT VOLUME 8.3 fl (7.5-11.1); NEUT % 68.2 % (42.8-82.8); PLATELET COUNT 195 10^3/uL (134-434); RBC 2.96 M/mm3 (3.60-5.2); RDW 14.9 % (11.6-15.6); WHITE BLOOD COUNT 8.1 K/mm3 (4.0-10.0)
[2023-07-18 09:15] VITALS: BP 103/64; PULSE 91; RESP 18; TEMP 97.9
== END 2023-07-18 14:15 | disposition home or self-care (01) | DRG 540 ==
LOC: JLDR 17:00 → UNDOADMIN 17:00 → JERBED 17:00 → J3W 07-16 01:19
PROVIDERS: ADMIT Obstetrics & Gynecology; ATTEND Obstetrics & Gynecology
PROC: 10D00Z1 Extraction of Products of Conception, Low, Open Approach (ICD-10-PCS; principal; 2023-07-15)
PROC: 0DNW0ZZ Release Peritoneum, Open Approach (ICD-10-PCS; 2023-07-15)
DX: O48.0 Post-term pregnancy (principal); O34.219 Maternal care for unspecified type scar from previous cesarean delivery; O77.0 Labor and delivery complicated by meconium in amniotic fluid; O99.62 Diseases of the digestive system complicating childbirth; K66.0 Peritoneal adhesions (postprocedural) (postinfection); Z3A.40 40 weeks gestation of pregnancy; Z37.0 Single live birth
CPT/HCPCS: 36415; 36600; 80048; 82803; 85025; 85610; 85730; 86780; 86850; 86900; 86901; 86922; 88307-TC; 90686; 90715; 94010; G0008; J0131